=== PATIENT | male | born 2005 | race Caucasian/White ===

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

== ENCOUNTER 2023-01-10 11:39 | Day surgery (SDC) | payer BC, OTHER ==
[~2023-01-10] VITALS: Ht 177.8 cm; Wt 92.6 kg
[2023-01-10] MEDS ORDERED: GLIP2.5ER (12:13)
[2023-01-10] MEDS ORDERED: OZEMPIC0.25 MG/0. (12:14)
[2023-01-10] MEDS ORDERED: TOUJEO MAX300 UNIT/2 (12:14)
[2023-01-10] MEDS ORDERED: Lisinopril2.5 MG (12:14)
[2023-01-10 15:46] VITALS: BP 108/64
== END 2023-01-10 15:45 | disposition home or self-care (01) ==
LOC: ORSCSDS 11:39
PROVIDERS: Internal Medicine Gastroenterology
PROC: 0DBG8ZX Excision of Left Large Intestine, Via Natural or Artificial Opening Endoscopic, Diagnostic (ICD-10-PCS; principal; 2023-01-10 13:00)
PROC: 0DBF8ZX Excision of Right Large Intestine, Via Natural or Artificial Opening Endoscopic, Diagnostic (ICD-10-PCS; principal; 2023-01-10 13:00)
PROC: 0DBP8ZX Excision of Rectum, Via Natural or Artificial Opening Endoscopic, Diagnostic (ICD-10-PCS; principal; 2023-01-10 13:00)
PROC: 0DB88ZX Excision of Small Intestine, Via Natural or Artificial Opening Endoscopic, Diagnostic (ICD-10-PCS; principal; 2023-01-10 13:00)
PROC: 0DB68ZX Excision of Stomach, Via Natural or Artificial Opening Endoscopic, Diagnostic (ICD-10-PCS; principal; 2023-01-10 13:00)
PROC: 0DB98ZX Excision of Duodenum, Via Natural or Artificial Opening Endoscopic, Diagnostic (ICD-10-PCS; principal; 2023-01-10 13:00)
DX: D50.9 Iron deficiency anemia, unspecified (principal); R19.4 Change in bowel habit; K62.5 Hemorrhage of anus and rectum; K64.8 Other hemorrhoids; K29.70 Gastritis, unspecified, without bleeding; K52.9 Noninfective gastroenteritis and colitis, unspecified; I10 Essential (primary) hypertension; K21.9 Gastro-esophageal reflux disease without esophagitis; F41.9 Anxiety disorder, unspecified; E11.9 Type 2 diabetes mellitus without complications; Z79.4 Long term (current) use of insulin; Z79.899 Other long term (current) drug therapy; Z79.85 Long-term (current) use of injectable non-insulin antidiabetic drugs
CPT/HCPCS: 82947; 88305; 88341; 88342; J0461; J2001; J2250; J2405; J2704; J7120; Q9968

== ENCOUNTER → 2023-07-16 | Outpatient (CLI) | payer BC, OTHER ==
[~2023-07-16] MED LIST changes: +Atarax10 MG; +GLIP2.5ER; +Lisinopril2.5 MG; +OZEMPIC0.25 MG/0.; +OZEMPIC2 MG/0.75; +SOLIFENACIN SUCC5 MG; +TOUJEO MAX300 UNIT/2
[2023-07-16 20:18] LABS: BASOPHILS ABSOLUTE AUTO 0.06 K/mm3 (0.00-0.23); BASOPHILS PERCENT AUTO 0 % (0-2); EOSINOPHILS ABSOLUTE AUTO 0.19 K/mm3 (0.00-0.68); EOSINOPHILS PERCENT AUTO 1 % (0-6); Hemoglobin 15.5 g/dL (13.5-17.5); IMMATURE GRAN ABSOLUTE AUTO 0.04 K/mm3 (0.00-0.10); IMMATURE GRAN PERCENT AUTO 0 % (0-1); LYMPHOCYTES ABSOLUTE AUTO 3.42 K/mm3 (0.84-5.20); LYMPHOCYTES PERCENT AUTO 22 % (21-46); MONOCYTES ABSOLUTE AUTO 0.92 K/mm3 (0.16-1.47); MONOCYTES PERCENT AUTO 6 % (4-13); Mean Corpuscular HGB 26.5 pg (26.0-34.0); Mean Corpuscular Volume 80 fL (80-100); Mean Platelet Volume 12.9 fL (9.1-12.4); NEUTROPHILS ABSOLUTE AUTO 10.94 K/mm3 (1.96-9.15); NEUTROPHILS PERCENT AUTO 70 % (41-73); Platelet Count 266 K/mm3 (150-400); RDW Coefficient Variation 13.2 % (11.7-14.2); RDW Standard Deviation 38.1 fL (35.1-46.3); Red Blood Cell Count 5.85 M/mm3 (4.30-5.90); White Blood Cell Count 15.57 K/mm3 (4.00-11.30)
[2023-07-16 20:19] LABS: C-REACTIVE PROTEIN, EXT RANGE 1.09 mg/dL (0.000-0.300); Percent Saturation 35.7 % (20.0-50.0)
[2023-07-16 20:22] LABS: Albumin, Blood 4.2 g/dL (3.4-5.0); Albumin/Globulin Ratio 0.8 (0.8-1.8); Bilirubin, Total 0.4 mg/dL (0.1-1.0); Bun/Creatinine Ratio 8.2 (12.0-20.0); Calcium, Blood 9.2 mg/dL (8.5-10.1); Creatinine, Blood 0.73 mg/dL (0.60-1.20); Globulin, Blood 5.2 g/dL (2.2-4.0); Potassium, Blood 4.1 mmol/L (3.5-5.5); Total Protein, Blood 9.4 g/dL (6.4-8.2)
== END | disposition home or self-care (01) ==
LOC: LAB 16:00 → LAB SHORT 16:00
PROVIDERS: Internal Medicine Hematology & Oncology
DX: D72.829 Elevated white blood cell count, unspecified (principal)
CPT/HCPCS: 80053; 83540; 83550; 83615; 85025; 85379; 85651; 86140; 86430

== ENCOUNTER → 2023-08-26 | Outpatient (CLI) | payer BC, OTHER | END | disposition home or self-care (01) | LOC: LAB SHORT 13:30 → LAB 13:30 | DX: D72.828 Other elevated white blood cell count (principal) | CPT/HCPCS: 88184; 88185 ==

== ENCOUNTER → 2023-11-18 | Outpatient (CLI) | payer BC, OTHER ==
[2023-11-21 02:46] LABS: HSV 1 SUBTYPE BY PCR Not Detected; HSV 2 SUBTYPE BY PCR Not Detected; HSV SUBTYPE SOURCE GLANS PENIS
== END | disposition home or self-care (01) ==
LOC: LAB SHORT 08:54
PROVIDERS: Nurse Practitioner
DX: N48.1 Balanitis (principal); N48.9 Disorder of penis, unspecified
CPT/HCPCS: 87529

== ENCOUNTER → 2024-03-14 | Outpatient (CLI) | payer BC, OTHER ==
[~2024-03-14] MED LIST changes: +HUMALOG100 UNIT/1 SC; +Percocet 5-3251 EACH PO
[2024-03-15 12:59] LABS: Campylobacter Sp Not Detected (NOT DETECT)
[2024-03-15 13:00] LABS: Adenovirus F 40/41 Not Detected (NOT DETECT); Astrovirus Not Detected (NOT DETECT); Cryptosporidium Not Detected (NOT DETECT); Cyclospora Cayetanensis Not Detected (NOT DETECT); E. Coli O157 Not Detected (NOT DETECT); Entamoeba Histolytica Not Detected (NOT DETECT); Enteroaggregative E. coli-EAEC Not Detected (NOT DETECT); Enteropathogenic E. coli-EPEC Not Detected (NOT DETECT); Enterotoxigenic E. coli-ETEC Not Detected (NOT DETECT); Giardia Lamblia Not Detected (NOT DETECT); Norovirus GI/GII Detected (NOT DETECT); Plesiomonas Shigelloides Not Detected (NOT DETECT); Rotavirus A Not Detected (NOT DETECT); Salmonella Sp Not Detected (NOT DETECT); Sapovirus Not Detected (NOT DETECT); Shiga Toxin-prod E. coli-STEC Not Detected (NOT DETECT); Shigella/Enteroin E. coli-EIEC Not Detected (NOT DETECT); Vibrio Cholerae Not Detected (NOT DETECT); Vibrio Sp Not Detected (NOT DETECT); Yersinia Enterocolitica Not Detected (NOT DETECT)
[2024-03-18 03:23] LABS: PANCREATIC ELASTASE,FECAL >800 ug/g (>=100)
== END ==
LOC: LAB SHORT 20:34 → LAB 20:34
PROVIDERS: Physician Assistant Medical
DX: R19.7 Diarrhea, unspecified (principal)
CPT/HCPCS: 82653; 87324; 87507

== ENCOUNTER 2024-05-10 18:43 | Emergency (ER) | payer OTHER, BC ==
[~2024-05-10] VITALS: Ht 175.3 cm; Wt 93.4 kg
[~2024-05-10 18:43] MED LIST changes: -HUMALOG100 UNIT/1 SC; -Percocet 5-3251 EACH PO
[2024-05-10 19:13] VITALS: BP 151/115
[2024-05-10] MEDS ORDERED: Acetaminophen 325 MG TABLET PO ONE (19:20)
[2024-05-10] MEDS ORDERED: HYDROcodone 5-APAP 325 TAB PO ONE (20:00)
[2024-05-10] MEDS ORDERED: Ibuprofen 400 MG Tab PO ONE (20:00)
[2024-05-10] MEDS ORDERED: Percocet 5-3251 EACH PO (21:23)
[2024-05-10] MEDS ORDERED: RX Prepack 6 Tabs Oxycodone 5mg UD ONE (21:25)
== END 2024-05-10 21:38 | disposition home or self-care (01) ==
LOC: ER 18:43
DX: S52.571A Other intraarticular fracture of lower end of right radius, initial encounter for closed fracture (principal); S52.611A Displaced fracture of right ulna styloid process, initial encounter for closed fracture; S52.135A Nondisplaced fracture of neck of left radius, initial encounter for closed fracture; S00.81XA Abrasion of other part of head, initial encounter; S80.211A Abrasion, right knee, initial encounter; V19.9XXA Pedal cyclist (driver) (passenger) injured in unspecified traffic accident, initial encounter; I10 Essential (primary) hypertension; E11.9 Type 2 diabetes mellitus without complications; Z79.84 Long term (current) use of oral hypoglycemic drugs; Z79.85 Long-term (current) use of injectable non-insulin antidiabetic drugs; Z79.4 Long term (current) use of insulin; Z79.899 Other long term (current) drug therapy
CPT/HCPCS: 25605; 29105; 73070; 73110; 99284-25; A9270

== ENCOUNTER 2024-05-17 09:34 | Day surgery (SDC) | payer OTHER, BC ==
[~2024-05-17] VITALS: Ht 177.8 cm; Wt 93.7 kg
[~2024-05-17 09:34] MED LIST changes: +Percocet 5-3251 EACH PO
[2024-05-17] MEDS ORDERED: NS 50 ML IV ONE (10:34)
[2024-05-17] MEDS ORDERED: CeFAZolin Sodium 2,000 MG VIAL ONE (10:34)
[2024-05-17] MEDS ORDERED: Lactated Ringer's 1,000 ML IV ONE ×2 (10:49→13:18)
[2024-05-17] MEDS ORDERED: HUMALOG100 UNIT/1 SC (10:58)
[2024-05-17] MEDS ORDERED: Midazolam HCl 1MG / ML 2ML Vial ONE (11:31)
[2024-05-17] MEDS ORDERED: FentaNYL Citrate 50 MCG/ML 2 ML Injection ONE ×2 (11:31→13:31)
[2024-05-17] MEDS ORDERED: EPINEPhrine HCl 1 MG/ML 1ML Amp ONE (11:35)
[2024-05-17] MEDS ORDERED: Bupivacaine 0.5% HCl 5 MG/ML 30MLVIAL ONE (11:35)
[2024-05-17] MEDS ORDERED: Lidocaine 1%-Epineph 1:100000 20 ML MDV ONE (11:53)
[2024-05-17] MEDS ORDERED: propofoL 20 ML IV ONE (12:09)
--- NOTE | 2024-05-17 12:09 | NUR ---
05/17/24 1209 Scott Bob CRNA, [place] STARTED A RIGHT AXILLARY BLOCK. TIMEOUT AT 1154. BLOCK START AT 1159, BLOCK END AT 1159. PATIENT TOLERATED WELL.
[2024-05-17] MEDS ORDERED: Ondansetron HCl 2 MG / ML 2ML Vial ONE (12:15)
[2024-05-17] MEDS ORDERED: Dexamethasone Sod Phos 10 MG/ML 1ML VIAL ONE (12:15)
[2024-05-17] MEDS ORDERED: HYDROmorphone HCl/Pf 1MG SYR ONE (12:16)
--- NOTE | 2024-05-17 13:21 | NUR ---
05/17/24 1321 ANNEL AVALOS IV SWITCHED. 75ML USED IN PACU. NEW BAG OF LR 1,000 STARTED
[2024-05-17 14:07] VITALS: BP 134/77
--- NOTE | 2024-05-17 15:20 | NUR ---
05/17/24 1520 Eulalia Kirby PT PAINFUL IN STEPDOWN AT RIGHT WRIST, SCLAE OF 7. GAVE 25 MCG FENTANYL. WAS STILL PAINFUL A LITTLE BIT LATER AND RATED IT A 6. GAVE 25 MCG FENTANYL IV FOR TOTAL OF 50 MCG. PAIN CAME DOWN TO A 4 WHICH WAS TOLERABLE FOR PT. DRANK APPLE JUICE AND ATE MP CRACKERS WITHOUT N/V. SLING FITTED TO RIGHT ARM AND DISCHARGE INSTRUCTIONS GIVEN TO PT AND AUNT NESTOR. PT HAS PAIN MEDICATION AT HOME STILL FROM DATE OF INJURY. INSURANCE WOULD NOT PAY TODAY FOR NEW SCRIPT DUE TO HIM HAVING SUPPLY OF SAME MEDICATION AT HOME. AUNT NESTOR CALLED PT'S MOM TO VERIFY HE HAD PAIM MEDICATION AT HOME AND HEARS MOM ON PHONE COUNT AND SAY HE HAD PLENTY OF PILLS.
== END 2024-05-17 15:05 | disposition home or self-care (01) ==
LOC: ORSCSDS 09:34
PROVIDERS: Orthopaedic Surgery
PROC: 0LN50ZZ Release Right Lower Arm and Wrist Tendon, Open Approach (ICD-10-PCS; principal; 2024-05-17 11:30)
PROC: 0PSH04Z Reposition Right Radius with Internal Fixation Device, Open Approach (ICD-10-PCS; principal; 2024-05-17 11:30)
DX: S52.501A Unspecified fracture of the lower end of right radius, initial encounter for closed fracture (principal); V19.3XXA Pedal cyclist (driver) (passenger) injured in unspecified nontraffic accident, initial encounter; E11.9 Type 2 diabetes mellitus without complications; I10 Essential (primary) hypertension; Z79.4 Long term (current) use of insulin; Z79.899 Other long term (current) drug therapy
CPT/HCPCS: 82947; C1713; J0171; J0690; J1100; J1170; J2250; J2405; J2704; J3010